=== PATIENT | male | born 1985 | race Native Hawaiian/Other Pacific Islander ===

== ENCOUNTER 2019-11-14 18:27 | Emergency (ER) | payer BC ==
[~2019-11-14] VITALS: Ht 167.6 cm; Wt 77.1 kg
[2019-11-14 19:31] VITALS: BP 119/74; TEMP 99.1
== END 2019-11-14 19:32 | disposition home or self-care (01) ==
LOC: ED 18:27
DX: S02.5XXA Fracture of tooth (traumatic), initial encounter for closed fracture (principal); F17.210 Nicotine dependence, cigarettes, uncomplicated
CPT/HCPCS: 96372; 99283; J0696; J1885